=== PATIENT | female | born 1975 | race Hispanic/Latino ===

== ENCOUNTER 2021-01-20 16:49 | Emergency (ER) | payer SELFPAY ==
[~2021-01-20] VITALS: Ht 157.5 cm; Wt 88.5 kg
[2021-01-20] MEDS ORDERED: MORPHINE SULFATE INJ 4 MG/ML INJ 1ML ONE (17:07)
[2021-01-20] MEDS ORDERED: ONDANSETRON HCL INJ 2MG/ML 2ML 2 MG/ML VIAL ONE (17:08)
[2021-01-20] MEDS ORDERED: MORPHINE SULFATE INJ 2 MG/ML SYR IV NR (17:15)
[2021-01-20] MEDS ORDERED: ONDANSETRON HCL INJ 2MG/ML 2ML 2 MG/ML VIAL IV NR (17:15)
[2021-01-20] MEDS ORDERED: HYDROMORPHONE 1MG/1ML INJ IV STA (17:15)
[2021-01-20] MEDS ORDERED: KETOROLAC TROMETHAMINE 30 MG/ML VIAL IV NR (17:30)
[2021-01-20] MEDS ORDERED: HYDROMORPHONE 1MG/1ML INJ IV NR (17:30)
[2021-01-20] MEDS ORDERED: MIDAZOLAM HCL 2 MG/2 ML VIAL IV STA (18:50)
[2021-01-20] MEDS ORDERED: MIDAZOLAM HCL 2MG/ML ORAL LIQ CUP PO ONE (19:00)
[2021-01-20] MEDS ORDERED: FENTANYL CITRATE/PF 100MCG/2 ML INJ IV ONE (19:00)
[2021-01-20] MEDS ORDERED: HYDROCODON-ACE1 EAC9 PO (20:24)
[2021-01-20 20:59] VITALS: BP 124/86
== END 2021-01-20 21:05 | disposition home or self-care (01) ==
LOC: ER 17:06
DX: S82.852A Displaced trimalleolar fracture of left lower leg, initial encounter for closed fracture (principal); X50.1XXA Overexertion from prolonged static or awkward postures, initial encounter; Y93.02 Activity, running; Y92.832 Beach as the place of occurrence of the external cause
CPT/HCPCS: 29515; 73610; 73630; 99284; J1170; J1885; J2250; J2270; J2405; J3010